=== PATIENT | female | born 1930 | race Caucasian/White ===

== ENCOUNTER 2017-03-21 15:49 | Emergency (ER) | payer OTHER ==
[~2017-03-21] VITALS: Ht 162.6 cm; Wt 52.0 kg
--- NOTE | ~2017-03-21 | EKG ---
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 PRESTON : 1930 Requested By: Beau Godoy Order Number: [id number] MD: Antonio Love Measurements Intervals [place] Rate: 78 P: 152 MS: 182 QRS: 11 QRSD: 76 T: 136 QT: 373 QTc: 425 Interpretive Statements Sinus or ectopic atrial rhythm Probable left atrial enlargement Low voltage, extremity leads Abnormal T, consider ischemia, lateral leads Compared to ECG 11/12/2015 18:09:38 Ectopic atrial rhythm now present Electronically Signed On 03-24-2017 11:53:52 CDT by Antonio Love [email or web address] <ELECTRONICALLY SIGNED> By: Antonio Love MD, [facility] 03/24/17 1153 [id number] 1559 Antonio Love MD, [facility] /EPI
[~2017-03-21 15:49] MED LIST: ACETAMINOPHEN-1 EAC1 PO; AMOXICILLIN 50500 MG PO; ASPIRIN81 M2 PO; ATROVENT HFA14 GM INH; BISOPROLOL FUMAR5 M1 PO; BUTALB-APAP-CA1 EACH PO; CALCIUM OYSTER500 MG PO; CEFDINIR; CENTRUM SILVER1 EAC1 PO; CLONIDINE HCL0.3 M3 TRANSDERM; CLONIDINE-TTS0.3 MG; COLESTID1 GM PO; CRESTOR10 MG PO; CRESTOR20 MG PO; DESYREL100 MG PO; DIFLUCAN100 MG PO; ENOXAPARIN40 MG/0.1 SUBQ; FISH OIL 1,001000 MG PO; FLAGYL500 MG PO; FLORASTOR250 MG PO; FLOVENT HFA 2220 MCG INH; K-DUR10 MEQ PO; KLOR-CON 1010 MEQ PO; LASIX 20 MG TAB20 MG PO; LISINOPRIL10 MG PO; MACROBID 100 M100 M2 PO; PLAVIX 75 MG TA75 M1 PO; PREDNISONE 10 M10 MG; PRILOSEC20 MG PO; PROAIR HFA8.5 GM IH; PROZAC20 M1 PO; PROZAC20 MG PO; QUALAQUIN324 MG PO; TYLENOL325 MG PO; VANCOCIN 250 M250 M1 PO; VENTOLIN HFA 1818 GM INH; VESICARE10 M1 PO; VITAMIN D 5050000 I1 PO; ZIAC 10-6.25 M1 EACH PO; [UNRECOGNIZED DRUG - OTHER]
[2017-03-21 16:16] LABS: URINE BILIRUBIN NEGATIVE (Negative); URINE BLOOD TRACE (Negative); URINE COLOR YELLOW; URINE GLUCOSE-RANDOM* NEGATIVE (Negative); URINE KETONES NEGATIVE (Negative); URINE NITRITE NEGATIVE (Negative); URINE PROTEIN (DIPSTICK) NEGATIVE (Negative); URINE UROBILINOGEN 0.2 E.U./dl (0.2-1.0)
[2017-03-21 16:18] LABS: ABSOLUTE NEUTROPHILS 5.9 thou/uL (1.4-8.2); BASOPHILS 0.2 % (0.0-2.0); EOSINOPHILS 3.3 % (0.0-3.0); HEMATOCRIT 28.2 % (37.0-47.0); HEMOGLOBIN 9.4 gm/dL (12.0-15.0); MCHC 33.4 g/dL (28.0-37.0); MCV 92.6 fL (80.0-100.0); MONOCYTES 2.9 % (1.0-8.0); PLATELET COUNT 234 thou/uL (150-400); POLYS 82.6 % (36.0-66.0); RBC 3.05 mil/uL (4.20-5.00); WBC 7.1 thou/uL (4.0-11.0)
[2017-03-21 16:21] LABS: MANUAL DIFF NO
[2017-03-21 16:26] LABS: ANION GAP 3 mmol/L (7-16); BUN 19 mg/dL (7-18); CHLORIDE 99 mmol/L (98-107); CO2 36 mmol/L (21-32); CREATININE 1.1 mg/dL (0.6-1.0); GLUCOSE 118 mg/dL (74-106); POTASSIUM 4.7 mmol/L (3.5-5.1); SODIUM 138 mmol/L (136-145)
[2017-03-21 16:27] LABS: ABG SAMPLE TYPE ARTERIAL; BE(vivo) 12.3 mmol/L (-2 to +3); HCO3 38.2 mmol/L (22.0-26.0); LACTATE 1.33 mmol/L (0.5-2.0); O2(CT) 14.4 mL/dL (15.0-23.0); O2Hb 97.1 % (92.0-98.0); PCO2 57.1 mmHg (35.0-45.0); PO2 102.3 mmHg (80.0-100.0); pH 7.443 (7.360-7.450); sO2 97.7 % (92.0-98.0); tCO2 39.9 mmol/L (24.0-30.0)
[2017-03-21 16:30] LABS: ABG COMMENT NO COMPLICATIONS.; STICK SITE R.RADIAL
[2017-03-21] MEDS ORDERED: BISACODYL SUPP10 MG RECTAL (16:32)
[2017-03-21] MEDS ORDERED: DITROPAN XL10 MG PO (16:33)
[2017-03-21] MEDS ORDERED: UNICOMPLEX M TA1 TA1 PO (16:33)
[2017-03-21] MEDS ORDERED: REMERON15 MG PO (16:34)
[2017-03-21] MEDS ORDERED: ALLERGY RELIEF180 MG PO (16:35)
[2017-03-21] MEDS ORDERED: COLACE100 MG PO (16:35)
[2017-03-21] MEDS ORDERED: ACIDOPHILUS1 EAC4 PO (16:35)
[2017-03-21] MEDS ORDERED: TYLENOL325 MG PO (16:36)
[2017-03-21 16:38] LABS: NT-PRO BRAIN NAT PEPTIDE 424 pg/mL (<300); TROPONIN-I < 0.04 ng/mL (<0.04-0.07)
[2017-03-21 18:21] VITALS: BP 121/69
== END 2017-03-21 17:01 | disposition home or self-care (01) ==
LOC: ER 15:49
PROVIDERS: Emergency Medicine; Nurse Practitioner
DX: J44.1 Chronic obstructive pulmonary disease with (acute) exacerbation (principal); I10 Essential (primary) hypertension; I73.9 Peripheral vascular disease, unspecified; E78.5 Hyperlipidemia, unspecified; H35.30 Unspecified macular degeneration; I48.91 Unspecified atrial fibrillation; I71.4 Abdominal aortic aneurysm, without rupture; F03.90 Unspecified dementia, unspecified severity, without behavioral disturbance, psychotic disturbance, mood disturbance, and anxiety; Z90.89 Acquired absence of other organs; Z87.440 Personal history of urinary (tract) infections; Z85.828 Personal history of other malignant neoplasm of skin; Z86.73 Personal history of transient ischemic attack (TIA), and cerebral infarction without residual deficits; Z88.2 Allergy status to sulfonamides; Z87.891 Personal history of nicotine dependence